=== PATIENT | female | born 1955 | race Caucasian/White ===

== ENCOUNTER 2019-12-03 10:53 | Emergency (ER) | payer BC ==
--- NOTE | 2019-12-03 11:59 | RAD REPORT ---
EXAM DESCRIPTION: US - Extremity Venous Uni Ltd - 12/03/2019 11:35 am CLINICAL HISTORY: SWELLING, left lower extremity pain, history of prolonged time in an automobile COMPARISON: None. TECHNIQUE: Real-time sonographic evaluation of the left lower extremity deep venous system was perfo rmed. FINDINGS: Normal compressibility, flow augmentation, phasic flow and spontaneous flow are identified in the left lower extremity common femoral, superficial femoral, popliteal and posterior tibial vein s. No intraluminal filling defects seen. IMPRESSION: No DVT in the left lower extremity.
--- NOTE | 2019-12-03 12:11 | RAD REPORT ---
EXAM DESCRIPTION: RAD - Chest Single View - 12/03/2019 11:58 am CLINICAL HISTORY: fall, chest injury COMPARISON: None TECHNIQUE: AP portable chest image was obtained 12/03/2019 11:58 am . FINDINGS: No focal lung parenchymal process. No pulmonary edema. Heart and vasculature are normal. N o measurable pleural effusion and no pneumothorax. No acute bony abnormality seen. No acute aortic fi ndings suspected. IMPRESSION: No acute cardiopulmonary process.
--- NOTE | 2019-12-03 12:21 | EDPHYS ---
Physician Documentation [facility] Name: Mary Bond Age: 64 yrs Sex: Female : 1955 Arrival Date: 12/03/2019 Time: 10:57 Bed 14 Private MD: ED Physician Hitesh Aguayo HPI: 12/02 11:09 This 64 yrs old Female presents to ER via Unassigned with complaints of Leg Swelling. jmm 11:09 The patient presents with swelling. Onset: The symptoms/episode began/occurred last jm night. Modifying factors: The symptoms are alleviated by walking. the symptoms are aggravated by nothing. This is a 64 year old female with a history of dm that presents to the ED with complaints of left lower leg swelling beginning last night. patient states she recently drove from [place]. Patient denies shortness of breath but states she injured her chest falling against an ironing board on Nov 25. . Historical: - Allergies: 11:00 No Known Allergies; aa5 - PMHx: 11:00 Diabetes; Hypertension; aa5 - Immunization history:: Adult Immunizations unknown. - Social history:: Smoking status: Patient denies any tobacco usage or history of. ROS: 11:09 Constitutional: Negative for fever, chills, and weight loss. jmm 11:09 Respiratory: Negative for shortness of breath, cough, wheezing, and pleuritic chest pain. 11:09 Cardiovascular: Positive for chest pain, with movement. 11:09 MS/extremity: Positive for swelling. 11:09 All other systems are negative. Exam: 11:09 Constitutional: This is a well developed, well nourished patient who is awake, alert, jmm and in no acute distress. Head/Face: atraumatic. Eyes: EOMI, no conjunctival erythema appreciated ENT: Moist Mucus Membranes Neck: Trachea midline, Supple Chest/axilla: Normal chest wall appearance and motion. Cardiovascular: Regular rate and rhythm. No edema appreciated Respiratory: Normal respirations, no respiratory distress appreciated Abdomen/GI: Non distended, soft Back: Normal ROM Skin: General appearance color normal 11:09 Musculoskeletal/extremity: swelling noted to the left lower leg, full dorsalis pulse, compartments are soft, nvi. 11:09 Skin: Appearance: Color: normal in color. 11:09 Neuro: Orientation: is normal, Mentation: is normal, Memory: is normal, Gait: is steady. Vital Signs: 11:00 BP 140 / 70; Pulse 83; Resp 18 S; Temp 99.1(O); Pulse Ox 97% on R/A; Pain 0/10; aa5 12:22 BP 126 / 67; Pulse 74; Resp 18; Pulse Ox 96% on R/A; Pain 0/10; jr10 MDM: 11:02 Patient medically screened. [facility] 12:19 Data reviewed: vital signs, nurses notes. Counseling: I had a detailed discussion with [facility] the patient and/or guardian regarding: the historical points, exam findings, and any diagnostic results supporting the discharge/admit diagnosis, radiology results, the need for outpatient follow up, to return to the emergency department if symptoms worsen or persist or if there are any questions or concerns that arise at home. ED course: Patient is alert and non toxic in appearance in the ED. No SOB. Imaging studies negative. Patient is otherwise given strict return precautions. Patient understood and agrees with the plan of care. . 12/02 11:07 Order name: US Extremity Venous Unilateral Ltd; Complete Time: 12:15 [facility] 12/02 11:13 Order name: Chest Single View XRAY; Complete Time: 12:15 [facility] Administered Medications: No medications were administered Disposition: 18:40 Co-signature as Attending Physician, Hitesh Aguayo MD. rn Disposition: 12/03/19 12:20 Discharged to Home. Impression: Edema, unspecified, Chest pain, unspecified. - Condition is Stable. - Discharge Instructions: Chest Contusion, Adult, Edema, Blunt Chest Trauma. - Medication Reconciliation Form, Thank You Letter, Antibiotic Education, Prescription Opioid Use form. - Follow up: Private Physician; When: 2 - 3 days; Reason: Recheck today's complaints, Continuance of care, Re-evaluation by your physician. Signatures: Dispatcher [employer] EDMS Cesar Fortune PA PA Hitesh Dudley MD MD rn Calderon, Audri, RN RN aa5 Chloe Bustos RN RN jr10 Corrections: (The following items were deleted from the chart) 12:32 12:20 12/03/2019 12:20 Discharged to Home. Impression: Edema, unspecified; Chest pain, jr10 unspecified. Condition is Stable. Forms are Medication Reconciliation Form, Thank You Letter, Antibiotic Education, Prescription Opioid Use. Follow up: Private Physician; When: 2 - 3 days; Reason: Recheck today's complaints, Continuance of care, Re-evaluation by your physician. domenic
--- NOTE | 2019-12-03 12:21 | ER ---
Nurse's Notes [facility] Name: Mary Bond Age: 64 yrs Sex: Female : 1955 Arrival Date: 12/03/2019 Time: 10:57 Bed 14 Private MD: Diagnosis: Edema, unspecified;Chest pain, unspecified Presentation: 12/02 11:00 Chief complaint: Patient states: left leg ankle swelling and lower leg swelling that aa5 began last night. Pt reports she drove to [place] from [place] on Monday. Pt denies leg pain. Pt also reports pain to chest that began after a fall approximately 1-2 weeks ago. 11:00 Coronavirus screen: Client denies travel out of the [place] in the last 14 days. At this aa5 time, the client does not indicate any symptoms associated with coronavirus-19. Ebola Screen: Patient negative for fever greater than or equal to 101.5 degrees Fahrenheit, and additional compatible Ebola Virus Disease symptoms. Initial Sepsis Screen: Does the patient meet any 2 criteria? No. Patient's initial sepsis screen is negative. Does the patient have a suspected source of infection? No. Patient's initial sepsis screen is negative. Risk Assessment: Do you want to hurt yourself or someone else? Patient reports no desire to harm self or others. Onset of symptoms was November 2019. 11:00 Acuity: PO 3 aa5 11:00 Method Of Arrival: Ambulatory aa5 Historical: - Allergies: 11:00 No Known Allergies; aa5 - PMHx: 11:00 Diabetes; Hypertension; aa5 - Immunization history:: Adult Immunizations unknown. - Social history:: Smoking status: Patient denies any tobacco usage or history of. Screenin:22 Abuse screen: Denies threats or abuse. Denies injuries from another. Nutritional jr10 screening: No deficits noted. Tuberculosis screening: No symptoms or risk factors identified. Fall Risk None identified. Assessment: 11:18 General: Appears in no apparent distress. Behavior is calm, cooperative, appropriate jr10 for age. Pain: Complains of pain in left lower leg pain and swelling since yesterday Pain does not radiate. Quality of pain is described as aching, Pain began 1 day ago. Neuro: No deficits noted. Cardiovascular: Reports chest pain, anterior chest wall pain x2 weeks s/p mechanical fall "I think I might've cracked a rib but I never got an xray or anything" Denies shortness of breath. Cardiovascular: Capillary refill < 3 seconds Patient's skin is warm and dry. Pulses are all present. Edema is absent. pt reports swelling in left calf and ankle yesterday that resolved this morning, no pain with palpation; does report a long drive from [place] to [place] with longest stretch of 16 hours. Respiratory: Airway is patent Respiratory effort is even, unlabored, Respiratory pattern is regular, symmetrical, Denies shortness of breath. GI: No deficits noted. No signs and/or symptoms were reported involving the gastrointestinal system. : No deficits noted. No signs and/or symptoms were reported regarding the genitourinary system. EENT: No deficits noted. No signs and/or symptoms were reported regarding the EENT system. Derm: Skin is intact, is healthy with good turgor, Skin is dry, Skin is pink, warm \\T\\ dry. Skin temperature is warm. Musculoskeletal: No deficits noted. Vital Signs: 11:00 BP 140 / 70; Pulse 83; Resp 18 S; Temp 99.1(O); Pulse Ox 97% on R/A; Pain 0/10; aa5 12:22 BP 126 / 67; Pulse 74; Resp 18; Pulse Ox 96% on R/A; Pain 0/10; jr10 ED Course: 10:57 Patient arrived in ED. ag5 10:57 Arm band placed on. aa5 10:59 Cesar Fortune PA is PHCP. [place] 10:59 Hitesh Aguayo MD is Attending Physician. [place] 11:13 Triage completed. aa5 11:15 Chloe Bustos, KENZIE is Primary Nurse. jr10 11:22 Patient has correct armband on for positive identification. Bed in low position. Call jr10 light in reach. Side rails up X2. Pulse ox on. NIBP on. 11:22 No provider procedures requiring assistance completed. Patient did not have IV access jr10 during this emergency room visit. 11:29 US Extremity Venous Unilateral Ltd In Process Unspecified. EDMS 11:58 Chest Single View XRAY In Process Unspecified. EDMS Administered Medications: No medications were administered Outcome: 12:20 Discharge ordered by . [place] 12:32 Discharged to home ambulatory. jr10 12:32 Condition: good 12:32 Discharge instructions given to patient, Instructed on discharge instructions, follow up and referral plans. Demonstrated understanding of instructions, follow-up care. 12:32 Patient left the ED. jr10 Signatures: Dispatcher [employer] EDCesar Mancini PA PA jmm Calderon, Audri, RN RN aa5 Blade Mart Jessica RN RN jr10
[2019-12-05 19:06] VITALS: BP 126/67; O2SAT 96
== END 2019-12-03 12:32 | disposition home or self-care (01) ==
LOC: ER 10:53
DX: R60.9 Edema, unspecified (principal); R07.9 Chest pain, unspecified
CPT/HCPCS: 71045; 93971; 99283

== ENCOUNTER 2019-12-05 20:32 | Emergency (ER) | payer BC ==
--- NOTE | 2019-12-05 21:07 | EDPHYS ---
Physician Documentation [facility] Name: Mary Bond Age: 64 yrs Sex: Female : 1955 Arrival Date: 12/05/2019 Time: 20:34 Bed 19 Private MD: ED Physician Ranjan Boateng HPI: 12/04 21:00 This 64 yrs old Female presents to ER via Ambulatory with complaints of Blood cp In Urine. 21:00 The patient presents with urinary symptoms, dysuria, hematuria. cp 21:00 Onset: The symptoms/episode began/occurred 1 day(s) ago. Associated signs and symptoms: cp Pertinent negatives: diarrhea, fever, vaginal bleeding, vaginal discharge, vomiting, abdominal pain. Severity of symptoms: in the emergency department the symptoms are unchanged, despite home interventions. Historical: - Allergies: 20:37 No Known Allergies; ll1 - PMHx: 20:37 Diabetes; Hypertension; ll1 - Immunization history:: Flu vaccine is not up to date. - Social history:: Smoking status: Patient denies any tobacco usage or history of. Patient/guardian denies using alcohol, street drugs. ROS: 21:03 Constitutional: Negative for body aches, chills, fever, poor PO intake. cp 21:03 Cardiovascular: Negative for chest pain. 21:03 Respiratory: Negative for cough, shortness of breath, wheezing. 21:03 Abdomen/GI: Negative for abdominal pain, nausea, vomiting, and diarrhea. 21:03 Back: Negative for pain at rest, pain with movement. 21:03 : Positive for hematuria, burning with urination, Negative for vaginal bleeding, vaginal discharge. 21:03 Neuro: Negative for altered mental status, headache, weakness. 21:03 All other systems are negative. Exam: 21:04 Head/Face: Normocephalic, atraumatic. cp 21:04 Constitutional: The patient appears in no acute distress, alert, awake, comfortable, non-toxic, well developed, well nourished. 21:04 Chest/axilla: Inspection: normal. 21:04 Cardiovascular: Rate: normal. 21:04 Respiratory: the patient does not display signs of respiratory distress, Respirations: normal, no use of accessory muscles, no retractions, labored breathing, is not present. 21:04 Abdomen/GI: Exam negative for discomfort, distension, guarding, Inspection: abdomen appears normal. 21:04 Back: CVA tenderness, is absent. Vital Signs: 20:37 BP 145 / 74; Pulse 88; Resp 17; Temp 98.8; Pulse Ox 100% ; Pain 2/10; ll1 21:24 BP 141 / 70; Pulse 80; Resp 16; Pulse Ox 99% ; rr5 MDM: 20:55 Patient medically screened. 21:00 Differential diagnosis: pelvic inflammatory disease, urinary tract infection, cp vaginosis, pyelonephritis. 21:05 Data reviewed: vital signs, nurses notes, lab test result(s), urinalysis, and as a cp result, I will discharge patient. Counseling: I had a detailed discussion with the patient and/or guardian regarding: the historical points, exam findings, and any diagnostic results supporting the discharge/admit diagnosis, lab results, to return to the emergency department if symptoms worsen or persist or if there are any questions or concerns that arise at home. 12/04 20:56 Order name: Urine Microscopic Only 12/04 20:56 Order name: Urine Culture 12/04 20:56 Order name: Urine Dipstick-Ancillary (obtain specimen); Complete Time: 21:04 12/04 21:09 Order name: Urine Dipstick--Ancillary (enter results) mw2 Administered Medications: No medications were administered Disposition: 21:10 Chart complete. 12/05 00:03 Co-signature as Attending Physician, Ranjan Boateng MD. pkl Disposition: 12/05/19 21:06 Discharged to Home. Impression: Urinary tract infection, site not specified. - Condition is Stable. - Discharge Instructions: Urinary Tract Infection, Adult. - Prescriptions for Pyridium 200 mg Oral Tablet - take 1 tablet by ORAL route every 8 hours for 2 days; 6 tablet. Augmentin 875- 125 mg Oral Tablet - take 1 tablet by ORAL route every 12 hours for 7 days; 14 tablet. - Medication Reconciliation Form, Thank You Letter, Antibiotic Education, Prescription Opioid Use form. - Follow up: Private Physician; When: 1 - 2 days; Reason: Worsening of condition. - Problem is new. - Symptoms have improved. Signatures: Dispatcher [employer] EDKY Ranjan Boateng MD MD pkl Mingo Lyn PA PA cp Roque, Raymond, RN RN rr5 Alvin, Lynsay, RN RN ll1 Corrections: (The following items were deleted from the chart) 12/04 21:25 21:06 12/05/2019 21:06 Discharged to Home. Impression: Urinary tract infection, site rr5 not specified. Condition is Stable. Forms are Medication Reconciliation Form, Thank You Letter, Antibiotic Education, Prescription Opioid Use. Follow up: Private Physician; When: 1 - 2 days; Reason: Worsening of condition. Problem is new. Symptoms have improved. cp
--- NOTE | 2019-12-05 21:07 | ER ---
Nurse's Notes [facility] Name: Mary Bond Age: 64 yrs Sex: Female : 1955 Arrival Date: 12/05/2019 Time: 20:34 Bed 19 Private MD: Diagnosis: Urinary tract infection, site not specified Presentation: 12/04 20:37 Chief complaint: Patient states: Dysuria with slight spotting for 1 day. No fever. ll1 Coronavirus screen: Client denies travel out of the [place] in the last 14 days. At this time, the client does not indicate any symptoms associated with coronavirus-19. Ebola Screen: Patient denies travel to an Ebola-affected area in the 21 days before illness onset. Initial Sepsis Screen: Does the patient meet any 2 criteria? No. Patient's initial sepsis screen is negative. Risk Assessment: Do you want to hurt yourself or someone else? Patient reports no desire to harm self or others. Onset of symptoms was December 05, 2019. 20:37 Method Of Arrival: Ambulatory ll1 20:37 Acuity: PO 3 ll1 21:00 Initial Sepsis Screen: Does the patient have a suspected source of infection? Yes: rr5 Dysuria/Frequency/Urgency/UTI. Historical: - Allergies: 20:37 No Known Allergies; ll1 - PMHx: 20:37 Diabetes; Hypertension; ll1 - Immunization history:: Flu vaccine is not up to date. - Social history:: Smoking status: Patient denies any tobacco usage or history of. Patient/guardian denies using alcohol, street drugs. Screenin:24 Abuse screen: Denies threats or abuse. Denies injuries from another. Nutritional rr5 screening: No deficits noted. Tuberculosis screening: No symptoms or risk factors identified. Fall Risk None identified. Total Rivera Fall Scale indicates No Risk (0-24 pts). Assessment: 20:55 General: Appears in no apparent distress. comfortable, Behavior is calm, cooperative, rr5 appropriate for age. Pain: Complains of pain in urethra Pain currently is 2 out of 10 on a pain scale. Quality of pain is described as burning, Pain began suddenly, Is intermittent. 20:55 Neuro: Level of Consciousness is awake, alert, obeys commands, Oriented to person, rr5 place, time, situation. Cardiovascular: Capillary refill < 3 seconds Patient's skin is warm and dry. Respiratory: Airway is patent Respiratory effort is even, unlabored, Respiratory pattern is regular, symmetrical. GI: No signs and/or symptoms were reported involving the gastrointestinal system. : Urine is blood tinged, Reports burning with urination, blood in urine. EENT: No signs and/or symptoms were reported regarding the EENT system. Derm: Skin is intact, is healthy with good turgor, Skin temperature is warm. Musculoskeletal: Circulation, motion, and sensation intact. Capillary refill < 3 seconds. 21:24 Reassessment: Patient appears in no apparent distress at this time. Patient is alert, rr5 oriented x 3, equal unlabored respirations, skin warm/dry/pink. discharge instruction given and explained without complaints made. Vital Signs: 20:37 BP 145 / 74; Pulse 88; Resp 17; Temp 98.8; Pulse Ox 100% ; Pain 2/10; ll1 21:24 BP 141 / 70; Pulse 80; Resp 16; Pulse Ox 99% ; rr5 ED Course: 20:34 Patient arrived in ED. cl3 20:39 Triage completed. ll1 20:39 Arm band placed on Patient placed in an exam room, on a stretcher. ll1 20:45 Blair Prince RN is Primary Nurse. rr5 20:53 Mingo Lyn PA is PHCP. cp 20:53 Ranjna Boateng MD is Attending Physician. cp 21:00 Patient has correct armband on for positive identification. Call light in reach. rr5 21:00 No provider procedures requiring assistance completed. Patient did not have IV access rr5 during this emergency room visit. Administered Medications: No medications were administered Outcome: 21:06 Discharge ordered by . cp 21:25 Discharged to home ambulatory. rr5 21:25 Condition: stable 21:25 Discharge instructions given to patient, Instructed on discharge instructions, follow up and referral plans. medication usage, Demonstrated understanding of instructions, follow-up care, medications, Prescriptions given X 2. 21:25 Patient left the ED. rr5 Addendum: 12/09/2019 07:19 Addendum: Culture Results: Positive urine culture. No further action required. Bacteria e b sensitive to prescribed antibiotic. Signatures: Mingo Lyn PA PA cp Botello, Elizabeth eb Roque, Raymond, RN RN rr5 Jennifer Esquivel cl3 Serg Esquivel, RN RN ll1
[2019-12-05 21:27] LABS: Urine Bacteria <20 /HPF (<20); Urine Culture Reflex Order NOT NEEDED; Urine RBC >50 /HPF (NONE SEEN)
[2019-12-05 21:28] LABS: Urine Blood 3+ (NEG); Urine Glucose NEGATIVE (NEG); Urine Protein 3+ (NEG); Urine pH 6.5 (5.0-7.0)
[2019-12-05 21:28] LABS: Urine Mucus 1+ /HPF (NONE SEEN)
[2019-12-07 11:42] VITALS: TEMP 98.8
[2019-12-07 11:44] VITALS: BP 141/70; O2SAT 99
== END 2019-12-05 21:25 | disposition home or self-care (01) ==
LOC: ER 20:32
DX: N39.0 Urinary tract infection, site not specified (principal); I10 Essential (primary) hypertension
CPT/HCPCS: 81003; 81015; 87077; 87086; 87088; 87186; 99282

== ENCOUNTER 2020-01-30 19:32 | Emergency (ER) | payer BC ==
[2020-01-30] MEDS ORDERED: WATER FOR INJ,STERILE 10 ML ONE (20:37)
[2020-01-30] MEDS ORDERED: CEFTRIAXONE 1000 MG/VIAL ONE (20:37)
--- NOTE | 2020-01-30 20:41 | ER ---
Nurse's Notes [facility] Name: Mary Bond Age: 64 yrs Sex: Female : 1955 Arrival Date: 01/30/2020 Time: 19:35 Bed 25 Private MD: Diagnosis: Urinary tract infection, site not specified Presentation: 01/29 19:41 Chief complaint: Patient states: Dysuria, spotting for 1 day. Coronavirus screen: ll1 Client denies travel out of the [place] in the last 14 days. At this time, the client does not indicate any symptoms associated with coronavirus-19. Ebola Screen: Patient denies travel to an Ebola-affected area in the 21 days before illness onset. Initial Sepsis Screen: Does the patient meet any 2 criteria? No. Patient's initial sepsis screen is negative. Does the patient have a suspected source of infection? Yes: Dysuria/Frequency/Urgency/UTI. Risk Assessment: Do you want to hurt yourself or someone else? Patient reports no desire to harm self or others. Onset of symptoms was January 30, 2020. 19:41 Method Of Arrival: Ambulatory 1 19:41 Acuity: PO 3 ll1 Triage Assessment: 19:40 General: Appears in no apparent distress. Behavior is calm, cooperative, appropriate fu for age. Historical: - Allergies: 19:43 No Known Allergies; ll1 - PMHx: 19:43 Diabetes; Hypertension; ll1 - PSHx: 19:43 knee/foot sx; colon surgery; ll1 - Social history:: Smoking status: Patient denies any tobacco usage or history of. Screenin:00 Abuse screen: Denies threats or abuse. Nutritional screening: No deficits noted. fu Tuberculosis screening: No symptoms or risk factors identified. Fall Risk None identified. Assessment: 19:40 General: Appears in no apparent distress. Behavior is calm, cooperative, appropriate fu for age, Denies fever, feeling ill, fatigue, chills. Pain: Complains of pain in pain and burning sensation with urination. Neuro: Level of Consciousness is awake, alert, obeys commands, Oriented to person, place, time, situation, Jig Operator are equal bilaterally Moves all extremities. Gait is steady, Speech is normal, Facial symmetry appears normal. Cardiovascular: Denies chest pain, nausea, syncope, vomiting. Respiratory: Respiratory effort is even, unlabored, Respiratory pattern is regular. GI: No signs and/or symptoms were reported involving the gastrointestinal system. : Reports burning with urination, pain with urination, urgency, spotting with urination. EENT: No signs and/or symptoms were reported regarding the EENT system. Derm: No signs and/or symptoms reported regarding the dermatologic system. Musculoskeletal: No signs and/or symptoms reported regarding the musculoskeletal system. Vital Signs: 19:41 BP 152 / 78; Pulse 87; Resp 17; Temp 98.6; Pulse Ox 100% ; Weight 90.72 kg; Height 5 ll1 ft. 6 in. (167.64 cm); Pain 0/10; 20:07 BP 153 / 83; Pulse 81; Resp 18; Temp 99.2(T); Pulse Ox 98% on R/A; Pain 0/10; fu 19:41 Body Mass Index 32.28 (90.72 kg, 167.64 cm) ll1 ED Course: 19:35 Patient arrived in ED. 3 19:36 Cesar Fortune PA is PHCP. [facility] 19:36 Hitesh Agauyo MD is Attending Physician. [facility] 19:42 Triage completed. 1 19:42 Arm band placed on Patient placed in an exam room, on a stretcher. 1 20:00 Patient has correct armband on for positive identification. Bed in low position. Call fu light in reach. Side rails up X 1. 20:02 Ham Hook, KENZIE is Primary Nurse. fu 21:09 No provider procedures requiring assistance completed. Patient did not have IV access fu during this emergency room visit. Administered Medications: 20:39 Drug: Rocephin (cefTRIAXone) 1 grams Route: IM; Site: left gluteus; fu 21:00 Follow up: Response: No adverse reaction fu Outcome: 20:41 Discharge ordered by . [facility] 21:10 Discharged to home ambulatory. fu 21:10 Condition: stable 21:10 Discharge instructions given to patient, Instructed on discharge instructions, follow up and referral plans. Demonstrated understanding of instructions, follow-up care, Prescriptions given X 2. 21:11 Patient left the ED. fu Signatures: Cesar Fortune PA PA Ham Farrar RN RN Jennifer Esquivel 3 Alvin, Lynsay, RN RN ll1
--- NOTE | 2020-01-30 20:41 | EDPHYS ---
Physician Documentation [facility] Name: Mary Bond Age: 64 yrs Sex: Female : 1955 Arrival Date: 01/30/2020 Time: 19:35 Bed 25 Private MD: ED Physician Hitesh Aguayo HPI: 01/29 19:50 This 64 yrs old Female presents to ER via Ambulatory with complaints of Pain jmm With Urination. 19:50 The patient presents with urinary symptoms. Onset: The symptoms/episode began/occurred jmm gradually, this morning. Modifying factors: The symptoms are alleviated by nothing, the symptoms are aggravated by nothing. Associated signs and symptoms: Pertinent positives: dysuria, hematuria, Pertinent negatives: fever, vomiting. This is a 64 year old female with a history of DM, HTN that presents to the ED with complaints of painful burning urination and increased urge beginning this morning. Denies fever, denies abdominal pain, denies vomiting. . Historical: - Allergies: 19:43 No Known Allergies; ll1 - PMHx: 19:43 Diabetes; Hypertension; ll1 - PSHx: 19:43 knee/foot sx; colon surgery; ll1 - Social history:: Smoking status: Patient denies any tobacco usage or history of. ROS: 19:50 Constitutional: Negative for fever, chills, and weight loss, Cardiovascular: Negative jmm for chest pain, palpitations, and edema, Respiratory: Negative for shortness of breath, cough, wheezing, and pleuritic chest pain, Abdomen/GI: Negative for abdominal pain, nausea, vomiting, diarrhea, and constipation. 19:50 : Positive for urinary symptoms. 19:50 All other systems are negative. Exam: 19:50 Constitutional: This is a well developed, well nourished patient who is awake, alert, jmm and in no acute distress. Head/Face: atraumatic. Eyes: EOMI, no conjunctival erythema appreciated ENT: Moist Mucus Membranes Neck: Trachea midline, Supple Chest/axilla: Normal chest wall appearance and motion. Cardiovascular: Regular rate and rhythm. No edema appreciated Respiratory: Normal respirations, no respiratory distress appreciated 19:50 Back: Normal ROM Skin: General appearance color normal MS/ Extremity: Moves all extremities, no obvious deformities appreciated, no edema noted to the lower extremities Neuro: Awake and alert, normal gait Psych: Behavior is normal, Mood is normal, Patient is cooperative and pleasant 19:50 Abdomen/GI: Inspection: abdomen appears normal, Bowel sounds: normal, Palpation: soft, nontender, in all quadrants. Vital Signs: 19:41 BP 152 / 78; Pulse 87; Resp 17; Temp 98.6; Pulse Ox 100% ; Weight 90.72 kg; Height 5 ll1 ft. 6 in. (167.64 cm); Pain 0/10; 20:07 BP 153 / 83; Pulse 81; Resp 18; Temp 99.2(T); Pulse Ox 98% on R/A; Pain 0/10; fu 19:41 Body Mass Index 32.28 (90.72 kg, 167.64 cm) ll1 MDM: 19:54 Patient medically screened. [facility] 20:40 Data reviewed: vital signs, nurses notes. Counseling: I had a detailed discussion with domenic the patient and/or guardian regarding: the historical points, exam findings, and any diagnostic results supporting the discharge/admit diagnosis, lab results, the need for outpatient follow up, to return to the emergency department if symptoms worsen or persist or if there are any questions or concerns that arise at home. ED course: Patient is alert and non toxic in appearance in the ED. I do not suspect pyelonephritis. Patient is given strict return precautions. Patient understood and agrees with the plan of care. . 01/29 19:50 Order name: Urine Culture [facility] 01/29 20:46 Order name: Urine Dipstick--Ancillary (enter results); Complete Time: 21:04 tt3 01/29 19:50 Order name: Urine Dipstick-Ancillary (obtain specimen); Complete Time: 23:09 [facility] Administered Medications: 20:39 Drug: Rocephin (cefTRIAXone) 1 grams Route: IM; Site: left gluteus; fu 21:00 Follow up: Response: No adverse reaction fu Disposition: 21:40 Co-signature as Attending Physician, Hitesh Aguayo MD. rn Disposition: 01/30/20 20:41 Discharged to Home. Impression: Urinary tract infection, site not specified. - Condition is Stable. - Discharge Instructions: Urinary Tract Infection, Adult. - Prescriptions for Macrobid 100 mg Oral Capsule - take 1 capsule by ORAL route every 12 hours for 7 days; 14 capsule. Pyridium 200 mg Oral Tablet - take 1 tablet by ORAL route every 8 hours for 3 days; 9 tablet. - Medication Reconciliation Form, Thank You Letter, Antibiotic Education, Prescription Opioid Use form. - Follow up: Private Physician; When: 2 - 3 days; Reason: Recheck today's complaints, Continuance of care, Re-evaluation by your physician. Signatures: Dispatcher [employer] EDCesar Mancini PA PA jmm Nieto, Roman, MD MD rn Umadhay, Felix, RN RN fu Lewis, Lynsay, RN RN ll1 Corrections: (The following items were deleted from the chart) 21:11 20:41 01/30/2020 20:41 Discharged to Home. Impression: Urinary tract infection, site fu not specified. Condition is Stable. Forms are Medication Reconciliation Form, Thank You Letter, Antibiotic Education, Prescription Opioid Use. Follow up: Private Physician; When: 2 - 3 days; Reason: Recheck today's complaints, Continuance of care, Re-evaluation by your physician. domenic
[2020-01-30 20:59] LABS: Urine Blood 3+ (NEG); Urine Glucose 2+ (NEG); Urine Protein 3+ (NEG); Urine Specific Gravity >1.030 (1.005-1.030); Urine pH 5.5 (5.0-7.0)
[2020-01-30 21:15] VITALS: BP 152/78; TEMP 98.6; O2SAT 100
== END 2020-01-30 21:11 | disposition home or self-care (01) ==
LOC: ER 19:32
DX: N39.0 Urinary tract infection, site not specified (principal); I10 Essential (primary) hypertension; E11.9 Type 2 diabetes mellitus without complications
CPT/HCPCS: 81003; 87086; 87088; 96372; 99283

== ENCOUNTER 2021-12-01 16:52 | Emergency (ER) | payer BC ==
[2021-12-01] MEDS ORDERED: ACETAMINOPHEN 500 MG TAB ONE (17:30)
--- NOTE | 2021-12-01 18:55 | RAD REPORT ---
EXAM DESCRIPTION: CT - Head C Spine Mpr Wo Con - 12/01/2021 5:45 pm CLINICAL HISTORY: Head and neck injury status post fall. Head and neck pain COMPARISON: None. TECHNIQUE: Computed axial tomography of the head and cervical spine was obtained. Sagittal and coronal reconstruction was performed. All CT scans are performed using dose optimization technique as appropriate and may include automated exposure control or mA/KV adjustment according to patient size. FINDINGS: An intracranial bleed is not seen. The ventricles are normal in caliber. An extra-axial fl uid collection is not noted.Fluid within the visualized sinuses and mastoids is not seen A cervical fracture is not visualized. No dislocation is noted. Moderate spondylosis C5-6 IMPRESSION: No acute intracranial abnormality is seen. A cervical fracture is not visualized. If the patient continues to have symptoms to suggest intracra nial /spinal cord pathology then MRI would be recommended
--- NOTE | 2021-12-01 18:58 | RAD REPORT ---
EXAM DESCRIPTION: RAD - Forearm Left - 12/01/2021 5:41 pm CLINICAL HISTORY: Left forearm pain status post injury FINDINGS: Subtle cortical irregularity radial neck probably not significant as there does not appea r to be an elbow joint effusion. Clinical correlation is to see if patient has point tenderness in th is region to suggest a nondisplaced fracture. Remainder of the exam unremarkable
--- NOTE | 2021-12-01 19:30 | EDPHYS ---
Physician Documentation [facility] Name: Mary Bond Age: 66 yrs Sex: Female : 1955 Arrival Date: 12/01/2021 Time: 16:54 Bed 9 Private MD: ED Physician Adan Cantu HPI: 12/01 17:15 This 66 yrs old Female presents to ER via Ambulatory with complaints of Fall Injury. cp 17:15 Details of fall: The patient fell from an upright position, while walking, and struck a cp concrete surface. 17:15 Onset: The symptoms/episode began/occurred about 1500 today. Associated injuries: The cp patient sustained injury to the head, contusion, swelling, tenderness, left forearm, contusion, painful injury, painful ROM. 17:15 Patient reports trip and fall over uneven concrete while walking outside today. No LOC. cp Patient does not take blood thinner. Historical: - Allergies: 17:12 Chlorhexidine Gluconate; tp1 - Home Meds: 17:12 Rybelsus oral [Active]; losartan oral [Active]; Vitamin D Oral [Active]; Celebrex Oral tp1 [Active]; - PMHx: 17:12 Diabetes; Hypertension; tp1 - PSHx: 17:12 left knee surgery; tp1 - Immunization history:: Client reports receiving the 2nd dose of the Covid vaccine. - Social history:: Smoking status: Patient denies any tobacco usage or history of. ROS: 17:20 Constitutional: Negative for body aches, chills, fever, poor PO intake. cp 17:20 Eyes: Negative for injury, pain, redness, and discharge. cp 17:20 ENT: Negative for ear pain, sore throat, difficulty swallowing, difficulty handling secretions. 17:20 Cardiovascular: Positive for pain below left breast, Negative for palpitations. 17:20 Respiratory: Negative for cough, shortness of breath, wheezing. 17:20 Abdomen/GI: Negative for abdominal pain, nausea, vomiting, and diarrhea, constipation, black/tarry stool, rectal bleeding. 17:20 Back: Negative for pain at rest, pain with movement. 17:20 Skin: Negative for rash. 17:20 Neuro: Positive for headache, Negative for altered mental status, dizziness, loss of consciousness, weakness. 17:20 All other systems are negative. Exam: 17:25 Constitutional: The patient appears in no acute distress, alert, awake, comfortable, cp non-diaphoretic, non-toxic, well developed, well nourished. 17:25 Head/face: Noted is contusion, that is superficial, of the left buddhism, swelling, that cp is mild, of the left buddhism, tenderness, that is mild, of the left buddhism. 17:25 Eyes: Periorbital structures: appear normal, Pupils: equal, round, and reactive to light and accomodation, Extraocular movements: intact throughout, Conjunctiva: normal, no exudate, no injection, Sclera: no appreciated abnormality, Lids and lashes: appear normal, bilaterally. 17:25 ENT: External ear(s): are unremarkable, Ear canal(s): are normal, clear, TM's: dullness, bilaterally, Nose: is normal, Mouth: Lips: moist, Oral mucosa: pink and intact, moist, Posterior pharynx: Airway: no evidence of obstruction, patent. 17:25 Neck: C-spine: vertebral tenderness, is not appreciated, crepitus, is not appreciated, ROM/movement: pain, is not appreciated, limited range of motion, is not appreciated. 17:25 Chest/axilla: Inspection: normal, Palpation: crepitus, is not appreciated, tenderness, that is mild, of the below left breast. 17:25 Cardiovascular: Rate: normal, Rhythm: regular, Edema: is not appreciated, JVD: is not appreciated. 17:25 Respiratory: the patient does not display signs of respiratory distress, Respirations: normal, no use of accessory muscles, no retractions, labored breathing, is not present. 12/02 20:18 Abdomen/GI: Inspection: abdomen appears normal, Bowel sounds: active, all quadrants, cp Palpation: abdomen is soft and non-tender, in all quadrants. Back: pain, is absent, ROM is normal, vertebral tenderness, is not appreciated. Musculoskeletal/extremity: Extremities: grossly normal except: noted in the left forearm: pain, tenderness, painful ROM, There is no evidence of decreased ROM, deformity, Pulses: noted to be 2+ in the left radial artery, the left arm Sensation intact. Neuro: Orientation: to person, place \T\ time. Mentation: is normal. Vital Signs: 12/01 17:12 BP 132 / 61; Pulse 99; Resp 16; Temp 98.2; Pulse Ox 100% ; Weight 99.79 kg; Height 5 tp1 ft. 5 in. (165.10 cm); 20:00 BP 128 / 72; Pulse 87; Resp 18; Pulse Ox 100% ; Pain 4/10; kb3 17:12 Body Mass Index 36.61 (99.79 kg, 165.10 cm) tp1 Magalie Coma Score: 12/02 20:18 Eye Response: spontaneous(4). Verbal Response: oriented(5). Motor Response: obeys cp commands(6). Total: 15. MDM: 12/01 17:16 Patient medically screened. cp 19:29 Data reviewed: vital signs, nurses notes, radiologic studies, CT scan, plain films. cp 19:29 Differential diagnosis: closed head injury, contusion, fracture, multiple trauma. Test cp interpretation: by ED physician or midlevel provider: plain radiologic studies. Counseling: I had a detailed discussion with the patient and/or guardian regarding: the historical points, exam findings, and any diagnostic results supporting the discharge/admit diagnosis, radiology results, to return to the emergency department if symptoms worsen or persist or if there are any questions or concerns that arise at home. Response to treatment: the patient's symptoms have markedly improved after treatment, and as a result, I will discharge patient. Special discussion: Based on the patient's history, exam and DX evaluation, there is no indication for emergent intervention or inpatient TX. It is understood by the patient/guardian that if the SXs persist or worsen they need to return immediately for re-evaluation. 12/01 17:09 Order name: XRAY Ribs LEFT; Complete Time: 20:04 cp 12/01 20:04 Interpretation: Report reviewed. 12/01 17:09 Order name: CT Head C Spine; Complete Time: 19:15 cp 12/01 19:15 Interpretation: Reviewed report. 12/01 17:09 Order name: XRAY Forearm LEFT; Complete Time: 19:15 cp 12/01 17:10 Order name: Sling; Complete Time: 18:06 cp Administered Medications: 17:24 Drug: Tylenol 1000 mg Route: PO; jd3 17:57 Follow up: Response: No adverse reaction jd3 Disposition: 19:46 Co-signature as Attending Physician, Adan Cantu DO I was immediately available on-site ms3 in the Emergency Department for consultation in the care of the patient.. Disposition Summary: 12/01/21 19:29 Discharge Ordered Location: Home cp Problem: new cp Symptoms: have improved cp Condition: Stable cp Diagnosis - Fall on same level, unspecified cp - Contusion of front wall of thorax - left cp - Contusion of left forearm cp - Contusion of unspecified part of head, initial encounter cp Followup: cp - With: Private Physician - When: 2 - 3 days - Reason: Recheck today's complaints Discharge Instructions: - Discharge Summary Sheet cp - Rib Contusion cp - Facial or Scalp Contusion cp - Head Injury, Adult cp Forms: - Medication Reconciliation Form cp - Thank You Letter cp - Antibiotic Education cp - Prescription Opioid Use cp Signatures: Dispatcher [employer] EDMS Mingo Lyn PA PA cp Davies, Jonathon, RN RN jd3 Adan Cantu DO DO ms3 Alsysa Cohn RN RN tp1
--- NOTE | 2021-12-01 19:30 | ER ---
Nurse's Notes [facility] Name: Mary Bond Age: 66 yrs Sex: Female : 1955 Arrival Date: 12/01/2021 Time: 16:54 Bed 9 Private MD: Diagnosis: Fall on same level, unspecified;Contusion of front wall of thorax-left;Contusion of left forearm;Contusion of unspecified part of head, initial encounter Presentation: 12/01 17:00 Chief complaint: Patient states: fell on left wrist and arm, hit head but did not loose tp1 consciousness. reported dizziness and blurred vision for about 10 minutes. CO aching headache rated 5/10. Chief complaint:. Coronavirus screen: Vaccine status: Patient reports receiving the 2nd dose of the covid vaccine. Ebola Screen: Patient negative for fever greater than or equal to 101.5 degrees Fahrenheit, and additional compatible Ebola Virus Disease symptoms Patient denies exposure to infectious person. Patient denies travel to an Ebola-affected area in the 21 days before illness onset. Initial Sepsis Screen: Does the patient meet any 2 criteria? No. Patient's initial sepsis screen is negative. Does the patient have a suspected source of infection? No. Patient's initial sepsis screen is negative. Risk Assessment: Do you want to hurt yourself or someone else? Patient reports no desire to harm self or others. Onset of symptoms was December 01, 2021. 17:00 Method Of Arrival: Ambulatory tp1 17:18 Acuity: PO 4 jd3 Triage Assessment: 17:12 General: Appears in no apparent distress. uncomfortable, Behavior is calm, cooperative. tp1 Pain: Complains of pain in left hand and left arm, head Pain does not radiate. Pain currently is 5 out of 10 on a pain scale. Quality of pain is described as sharp, shooting, Pain began 2 hours ago. Is intermittent. Neuro: Level of Consciousness is awake, alert, obeys commands, Oriented to person, place, time, situation. Historical: - Allergies: 17:12 Chlorhexidine Gluconate; tp1 - Home Meds: 17:12 Rybelsus oral [Active]; losartan oral [Active]; Vitamin D Oral [Active]; Celebrex Oral tp1 [Active]; - PMHx: 17:12 Diabetes; Hypertension; tp1 - PSHx: 17:12 left knee surgery; tp1 - Immunization history:: Client reports receiving the 2nd dose of the Covid vaccine. - Social history:: Smoking status: Patient denies any tobacco usage or history of. Screenin:26 Abuse screen: Denies threats or abuse. Nutritional screening: No deficits noted. jd3 Tuberculosis screening: No symptoms or risk factors identified. Fall Risk Ambulatory Aid- None/Bed Rest/Nurse Assist (0 pts). Gait- Normal/Bed Rest/Wheelchair (0 pts) Mental Status- Oriented to own ability (0 pts). Total Rivera Fall Scale indicates No Risk (0-24 pts). Assessment: 17:24 General: Appears in no apparent distress. comfortable, Behavior is calm, cooperative, jd3 appropriate for age. Pain: Complains of pain in head and left arm Quality of pain is described as aching, tender. Neuro: Cochran Agitation-Sedation Scale (RASS): 0 - Alert and Calm Level of Consciousness is awake, alert, obeys commands, Oriented to person, place, time, situation. Cardiovascular: Denies chest pain, Capillary refill < 3 seconds Patient's skin is warm and dry. Respiratory: Airway is patent Respiratory effort is even, unlabored, Respiratory pattern is regular, symmetrical, Denies cough, shortness of breath. GI: No signs and/or symptoms were reported involving the gastrointestinal system. : No signs and/or symptoms were reported regarding the genitourinary system. EENT: No signs and/or symptoms were reported regarding the EENT system. Derm: Skin is intact, Bruising that is dark purple, on forehead. Musculoskeletal: Range of motion: limited in left elbow and left wrist. 18:06 Reassessment: Patient appears in no apparent distress at this time. No changes from jd3 previously documented assessment. Patient and/or family updated on plan of care and expected duration. Pain level reassessed. Patient is alert, oriented x 3, equal unlabored respirations, skin warm/dry/pink. Vital Signs: 17:12 BP 132 / 61; Pulse 99; Resp 16; Temp 98.2; Pulse Ox 100% ; Weight 99.79 kg; Height 5 tp1 ft. 5 in. (165.10 cm); 20:00 BP 128 / 72; Pulse 87; Resp 18; Pulse Ox 100% ; Pain 4/10; kb3 17:12 Body Mass Index 36.61 (99.79 kg, 165.10 cm) tp1 Magalie Coma Score: 12/02 20:18 Eye Response: spontaneous(4). Verbal Response: oriented(5). Motor Response: obeys cp commands(6). Total: 15. ED Course: 12/01 16:54 Patient arrived in ED. mr 17:05 Mingo Lyn PA is PHCP. cp 17:05 Adan Cantu DO is Attending Physician. cp 17:12 Arm band placed on. tp1 17:18 Tereso Gunderson, RN is Primary Nurse. jd3 17:18 Triage completed. jd3 17:26 Patient has correct armband on for positive identification. Bed in low position. Call jd3 light in reach. Side rails up X 1. Adult w/ patient. Pulse ox on. NIBP on. 17:44 XRAY Ribs LEFT In Process Unspecified. EDMS 17:44 XRAY Forearm LEFT In Process Unspecified. EDMS 17:47 CT Head C Spine In Process Unspecified. EDMS 18:06 Sling applied to left arm. jd3 20:00 No provider procedures requiring assistance completed. Patient did not have IV access kb3 during this emergency room visit. Administered Medications: 17:24 Drug: Tylenol 1000 mg Route: PO; jd3 17:57 Follow up: Response: No adverse reaction jd3 Medication: 17:26 VIS not applicable for this client. jd3 Outcome: 19:29 Discharge ordered by MD. cp 20:00 Discharged to home ambulatory. kb3 20:00 Condition: stable 20:00 Discharge instructions given to patient, Instructed on discharge instructions, follow up and referral plans. medication usage, Demonstrated understanding of instructions. 20:34 Patient left the ED. kb3 Signatures: Dispatcher [employer] ED Bustos, Skyla mr Mingo Lyn PA PA cp Davies, Jonathon, RN RN jAlyssa Saavedra RN RN tp1 Ernestina Simms RN RN kb3
--- NOTE | 2021-12-01 19:39 | RAD REPORT ---
EXAM DESCRIPTION: RAD - Ribs Left - 12/01/2021 5:41 pm CLINICAL HISTORY: Rib pain FINDINGS: No fracture visualized
[2021-12-01 20:46] VITALS: TEMP 98.2; O2SAT 100
[2021-12-01 20:48] VITALS: BP 128/72
== END 2021-12-01 20:34 | disposition home or self-care (01) ==
LOC: ER 16:52
DX: S20.212A Contusion of left front wall of thorax, initial encounter (principal); S50.12XA Contusion of left forearm, initial encounter; S00.83XA Contusion of other part of head, initial encounter; W18.30XA Fall on same level, unspecified, initial encounter; E11.9 Type 2 diabetes mellitus without complications; I10 Essential (primary) hypertension
CPT/HCPCS: 70450; 72125